=== PATIENT | male | born 1980 | race American Indian/Alaskan Native ===

== ENCOUNTER 2017-12-21 00:26 | Emergency (ER) | payer MEDICAID, OTHER ==
--- NOTE | 2017-12-21 00:58 | EDM.PDOC ---
ED HPI GENERAL MEDICAL PROBLEM - General Chief Complaint: ENT Problem Stated Complaint: TOOTHACHE Time Seen by Provider: 12/21/17 00:50 Source of Information: Reports: Patient, RN Notes Reviewed History Limitations: Reports: No Limitations - History of Present Illness INITIAL COMMENTS - FREE TEXT/NARRATIVE: 37-year-old gentleman presents emergency department today complaint of dental pain and facial swelling, one of his teeth upper aspect left side recently broke off he is experiencing increased pain over the last 24 hours has taken ibuprofen with minimal relief Left Upper jaw Pain Score (Numeric/FACES): 8 - Related Data Allergies Allergy/AdvReac Type Severity Reaction Status Date / Time No Known Allergies Allergy Verified 12/21/17 00:43 Home Meds: Home Meds NK [No Known Home Meds] 12/21/17 [History] Past Medical History Musculoskeletal History: Reports: Fracture - Infectious Disease History Infectious Disease History: Reports: Chicken Pox - Past Surgical History Musculoskeletal Surgical History: Reports: Other (See Below) Other Musculoskeletal Surgeries/Procedures:: ankle with metal plate/screw Social & Family History - Tobacco Use Smoking Status *Q: Unknown Ever Smoked - Caffeine Use Caffeine Use: Reports: Coffee - Recreational Drug Use Recreational Drug Use: No ED ROS ENT - Review of Systems Review Of Systems: See Below Constitutional: Reports: No Symptoms HEENT: Reports: Dental Pain Cardiovascular: Reports: No Symptoms Endocrine: Reports: No Symptoms ED EXAM, ENT - Physical Exam Exam: See Below Exam Limited By: No Limitations General Appearance: Alert, WD/WN, No Apparent Distress Eye Exam: Bilateral Eye: Normal Inspection Ears: Normal External Exam, Normal Canal, Hearing Grossly Normal, Normal TMs Nose: Normal Inspection Mouth/Throat: Normal Inspection, Normal Gums, Normal Lips, Normal Oropharynx, Dental Abcess (Suspicious), Dental Pain, Dental Tenderness, Dental Trauma Head: Atraumatic, Normocephalic Neck: Normal Inspection, Supple, Non-Tender, Full Range of Motion Respiratory/Chest: No Respiratory Distress, Lungs Clear, Normal Breath Sounds, No Accessory Muscle Use Cardiovascular: Regular Rate, Rhythm, No Murmur Course - Vital Signs Last Recorded V/S: Last Vital Signs Temp 97.0 F 12/21/17 00:39 Pulse 66 12/21/17 00:39 Resp 16 12/21/17 00:39 BP 139/86 12/21/17 00:39 Pulse Ox 99 12/21/17 00:39 Departure - Departure Time of Disposition: 00:57 Disposition: Home, Self-Care 01 Condition: Fair Clinical Impression: Dental abscess - Discharge Information Referrals: PCP,None [Primary Care Provider] - Additional Instructions: Continue to use ibuprofen for baseline pain control, use hydrocodone for breakthrough pain, please follow-up with the [facility] clinic tomorrow - Assessment/Plan Plan: Assessment Acuity = acute Site and laterality = dental abscess Etiology = bacterial cause Manifestations = pain Location of injury = Home Lab values = none Plan Prescription written for hydrocodone 1-2 tablets by mouth every 4-6 hours when necessary total #10, amoxicillin 500 mg by mouth 3 times a day 10 days he will follow-up with the [facility] tomorrow morning This note was dictated using [employer] voice recognition software please call with any questions on syntax or klaus.
== END 2017-12-21 01:10 | disposition home or self-care (01) ==
LOC: JP.ED 00:26
DX: K04.7 Periapical abscess without sinus (principal)
CPT/HCPCS: 99283

== ENCOUNTER 2020-10-08 22:13 | Emergency (ER) | payer MEDICAID ==
[2020-10-09] MEDS ORDERED: Amoxicillin 500 MG Cap PO ONE (00:32)
--- NOTE | 2020-10-09 00:39 | EDM.PDOC ---
ED HPI GENERAL MEDICAL PROBLEM - General Chief Complaint: ENT Problem Stated Complaint: RT SIDE TOOTHACHE Time Seen by Provider: 10/09/20 00:25 Source of Information: Reports: Patient, Old Records, RN History Limitations: Reports: No Limitations - History of Present Illness INITIAL COMMENTS - FREE TEXT/NARRATIVE: 40 yo NA male presents with tooth pain. Talked with his medical provider earlier today and Amoxicillin was called to a pharmacy for tomorrow. His face is now swelling on that R side and the meloxicam and acetaminophen he is taking are not controlling his pain. No fever. Has to talk to Edson tomorrow about getting a dentist appt. Onset: Gradual Onset Date: 10/06/20 Duration: Day(s):, Getting Worse Location: Reports: Face (R side) Quality: Reports: Ache Severity: Moderate Improves with: Reports: None Worsens with: Reports: Other (time) Context: Reports: Other (See HPI) Associated Symptoms: Reports: No Other Symptoms Treatments ROUND UP RING HAND: Reports: Acetaminophen, NSAIDS right side dental pain Pain Score (Numeric/FACES): 10 - Related Data Allergies Allergy/AdvReac Type Severity Reaction Status Date / Time No Known Allergies Allergy Verified 10/09/20 00:01 Home Meds: Home Meds NK [No Known Home Meds] 12/21/17 [History] Past Medical History Musculoskeletal History: Reports: Fracture Neurological History: Reports: Migraines - Infectious Disease History Infectious Disease History: Reports: Chicken Pox - Past Surgical History Head Surgeries/Procedures: Reports: None Neurological Surgical History: Reports: None Musculoskeletal Surgical History: Reports: Other (See Below) Other Musculoskeletal Surgeries/Procedures:: ankle with metal plate/screw Dermatological Surgical History: Reports: None Social & Family History - Tobacco Use Tobacco Use Status *Q: Current Every Day Tobacco User Years of Tobacco use: 30 Packs/Tins Daily: 1 Used Tobacco, but Quit: No Second Hand Smoke Exposure: No - Caffeine Use Caffeine Use: Reports: Coffee, Soda - Recreational Drug Use Recreational Drug Use: No ED ROS ENT - Review of Systems Review Of Systems: See Below Constitutional: Reports: No Symptoms HEENT: Reports: Dental Pain, Other (facial swelling on R) Respiratory: Reports: No Symptoms Cardiovascular: Reports: No Symptoms Endocrine: Reports: No Symptoms GI/Abdominal: Reports: No Symptoms : Reports: No Symptoms Musculoskeletal: Reports: No Symptoms Skin: Reports: Erythema (slightly of R cheek) Neurological: Reports: No Symptoms ED EXAM, ENT - Physical Exam Exam: See Below Exam Limited By: No Limitations General Appearance: Alert, WD/WN, No Apparent Distress Eye Exam: Bilateral Eye: Normal Inspection Ears: Normal External Exam, Hearing Grossly Normal, Normal TMs Nose: Normal Inspection, No Blood Mouth/Throat: Normal Lips, Normal Oropharynx, Dental Abcess, Dental Pain, Dental Tenderness, Other (R cheek swelling). No: Normal Inspection Head: Atraumatic, Facial Swelling (R cheek), Facial Tenderness (R cheek). No: Facial Lacerations Respiratory/Chest: No Respiratory Distress, Lungs Clear, No Accessory Muscle Use Cardiovascular: Regular Rate, Rhythm, No Edema Extremities: Normal Inspection Neurological: Alert, Oriented, CN II-XII Intact, Normal Cognition, No Motor/Sensory Deficits Psychiatric: Normal Affect, Normal Mood Skin: Warm, Dry, Intact, No Rash, Erythema (slight redness of R cheek) Course - Vital Signs Last Recorded V/S: Last Vital Signs Temp 36.4 C 10/09/20 00:02 Pulse 77 10/09/20 00:02 Resp 18 10/09/20 00:02 BP 127/75 10/09/20 00:02 Pulse Ox 96 10/09/20 00:02 - Orders/Labs/Meds Meds: Medications Discontinued Medications Generic Name Dose Route Start Last Admin Trade Name Alyssia PRN Reason Stop Dose Admin Amoxicillin 1,000 mg 10/09/20 00:32 Amoxil PO 10/09/20 00:33 ONETIME ONE Departure - Departure Time of Disposition: 00:39 Disposition: Home, Self-Care 01 Condition: Fair Clinical Impression: Dental infection - Discharge Information *PRESCRIPTION DRUG MONITORING PROGRAM REVIEWED*: No *COPY OF PRESCRIPTION DRUG MONITORING REPORT IN PATIENT [place]: No Instructions: Dental Abscess, [id number] Referrals: PCP,None [Primary Care Provider] - Forms: ED Department Discharge Additional Instructions: Start your amoxicillin in the morning. Take ibuprofen 600 mg every 6 hrs with food for pain relief. Add either acetaminophen or [place] for added relief. See your dentist [facility]ICK[facility] to get that tooth fixed. Return if a lot worse. Sepsis Event Note (ED) - Evaluation Sepsis Screening Result: No Definite Risk - Focused Exam Vital Signs: Vital Signs Temp Pulse Resp BP Pulse Ox 10/09/20 00:02 36.4 C 77 18 127/75 96 10/08/20 23:48 36.4 C 77 18 127/75 96
== END 2020-10-09 00:50 | disposition home or self-care (01) ==
LOC: JP.ED 22:13
DX: K04.7 Periapical abscess without sinus (principal); F17.210 Nicotine dependence, cigarettes, uncomplicated
CPT/HCPCS: 99282; A9270

== ENCOUNTER 2023-05-16 14:58 | Emergency (ER) | payer MEDICAID ==
[2023-05-16] MEDS ORDERED: cefTRIAXone 2 GM in Sodium Chloride 0.9% 50 ML IV ONE (16:47)
[2023-05-16 16:56] LABS: BASOPHILS ABSOLUTE AUTO 0.06 K/uL (0.00-0.10); BASOPHILS PERCENT AUTO 0.7 % (0.1-1.3); EOSINOPHILS PERCENT AUTO 1.1 % (0.0-5.4); HEMATOCRIT 37.6 % (38.4-49.7); HEMOGLOBIN 12.8 g/dL (12.9-16.9); IMMATURE GRAN ABSOLUTE AUTO 0.03 K/uL (0.00-0.23); IMMATURE GRAN PERCENT AUTO 0.3 % (0.0-0.7); LYMPHOCYTES ABSOLUTE AUTO 2.97 K/uL (0.8-3.3); LYMPHOCYTES PERCENT AUTO 33.9 % (11.4-47.7); MEAN CORPUSCULAR HEMOGLOBIN 29.1 pg (31.6-35.5); MEAN CORPUSCULAR VOLUME 85.5 fL (81.4-99.0); MONOCYTES ABSOLUTE AUTO 0.65 K/uL (0.20-0.90); MONOCYTES PERCENT AUTO 7.4 % (3.3-12.6); NEUTROPHILS ABSOLUTE AUTO 4.96 K/uL (1.0-7.6); NEUTROPHILS PERCENT AUTO 56.6 % (40.0-78.1); PLATELET COUNT,PLT 316 K/uL (130-375); WHITE BLOOD CELL COUNT,WBC 8.8 K/uL (3.2-11.0)
[2023-05-16] MEDS ORDERED: Sodium Chloride 0.9% 500 ML IV SCH (17:00)
[2023-05-16] MEDS ORDERED: Lidocaine 1% 5 ML VIAL INJECT ONE (17:34)
[2023-05-16] MEDS ORDERED: Bacitracin Oint 1 GM U/D Packet TOP ONE (18:45)
== END 2023-05-16 19:01 | disposition home or self-care (01) ==
LOC: JP.ED 14:58
DX: L03.012 Cellulitis of left finger (principal); F17.210 Nicotine dependence, cigarettes, uncomplicated
CPT/HCPCS: 10060; 36415; 85025; 96361; 96365; 99283; J0696; J3490; J7030